=== PATIENT | female | born 2000 | race African-American/Black ===

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

== ENCOUNTER 2022-02-05 22:39 | Emergency (ER) | payer SELFPAY ==
[2022-02-05] MEDS ORDERED: diphenhydrAMINE 50 MG Cap PO ONE (23:35)
[2022-02-05] MEDS ORDERED: Cetirizine 10 MG Tab PO ONE (23:50)
[2022-02-05] MEDS ORDERED: predniSONE 1 MG Tab PO ONE (23:50)
[2022-02-05] MEDS ORDERED: predniSONE 20 MG Tab PO ONE (23:59)
== END 2022-02-06 00:55 | disposition home or self-care (01) ==
LOC: MW.ED 22:39
DX: L50.9 Urticaria, unspecified (principal)
CPT/HCPCS: 99283; A9270

== ENCOUNTER 2023-09-28 18:17 | Emergency (ER) | payer SELFPAY ==
[2023-09-28 19:56] LABS: CORONAVIRUS COVID-19 NAA NEGATIVE (NEGATIVE); INFLUENZA A NAA NEGATIVE (NEGATIVE); INFLUENZA B NAA NEGATIVE (NEGATIVE)
[2023-09-28] MEDS: Amoxicillin/Clavulanate K 875-125 MG Tab PO ONE (20:01)
== END 2023-09-28 20:12 | disposition home or self-care (01) ==
LOC: MW.ED 18:17
DX: J32.9 Chronic sinusitis, unspecified (principal); Z88.8 Allergy status to other drugs, medicaments and biological substances; Z75.8 Other problems related to medical facilities and other health care
CPT/HCPCS: 0240U; 99283; A9270